=== PATIENT | male | born 1995 | race Caucasian/White ===

== ENCOUNTER 2017-02-17 08:08 | Day surgery (SDC) | payer OTHER ==
[~2017-02-17] VITALS: Ht 177.8 cm; Wt 71.7 kg
--- NOTE | ~2017-02-17 | S ---
[facility] [place] [address] SURGICAL PATH RPT PROCEDURE Name: LUZ WISE Room #: DEP [facility]..#: [id number] Admission: 02/17/17 Date of : 89 Discharge: 02/17/17 Report #: [id number] Path Case #: [id number] PATHOLOGY REPORT COLLECTION DATE: 02/17/2017 RECEIVED DATE: 02/18/2017 SUBMITTING PHYS: Dr. Roshan Chicas OTHER PHYS: SPECIMEN(S) RECEIVED: A.Pilonidal cyst * * * * * * * * * * * * FINAL DIAGNOSIS: Pilonidal cyst, excision: - Marked acute and chronic inflammation along with giant cell reaction associated with vellus hair, consistent with pilonidal cyst. (IUV:mgr; d/t: 02/19/17) PATHOLOGIST: Bridget Gutiérrez M.D. REPORT ELECTRONICALLY SIGNED BY: Bridget Gutiérrez M.D. DATE/TIME: 02/19/2017 16:28 * * * * * * * * * * * * GROSS PATHOLOGY: The specimen is received in formalin labeled "kamari Dorseydal cyst". Received is an ellipse of pale guerra skin with attached yellow-guerra fibroadipose tissue measuring 4.5 x 1.0 x 2.1 cm in greatest dimensions. The surgical margin is inked. Sectioning reveals a linear sinus tract measuring 1.1 cm in length filled with a moderate amount of hair. The specimen is submitted representatively in cassette A1. (CAA; 02/18/2017) CLINICAL HISTORY: Pilonidal cyst INITIAL CPT CODE(S): A; 20611 Professional services performed by [facility] at [facility] [address], [place] [address] Technical services performed by [facility] at [address] [place] [address]. [facility] [address] [place] [address] SURGICAL PATH RPT PROCEDURE Name: LUZ WISE Room #: DEP [facility] M.R.#: [id number] Admission: 02/17/17 Date of : [birth year] Discharge: 02/17/17 Report #: [id number] Path Case #: [id number] [place] [address] PHONE: [phone] DIRECTOR: Adan Campo M.D. * * * END OF REPORT * * *
--- NOTE | ~2017-02-17 | O ---
[facility] [place] [address] OPERATIVE REPORT Name: LUZ WISE Room #: DEP [facility]..#: [id number] Admission: 02/17/17 Attend Phys: Roshan Chicas MD, Discharge: 02/17/17 Date of : 89 Report #: [id number] THIS REPORT FOR: //name// CC: BARBIE physician/PCP Roshan Chicas DATE OF SERVICE: 02/17/2017 PREOPERATIVE DIAGNOSIS: Pilonidal cyst with multiple draining sinus tracts. POSTOPERATIVE DIAGNOSIS: Extensive pilonidal cyst with multiple draining sinus tracts. PROCEDURE PERFORMED: Extensive excision of pilonidal cyst and draining sinus tracts with complex flap closure. SURGEON: Roshan Chicas M.D. BUILDING [employer]STRU[employer] SUPERVISOR: YOLIE Hopkins ANESTHESIA: General endotracheal anesthesia. ESTIMATED BLOOD LOSS: Minimal (less than 10 mL). COMPLICATIONS: None appreciated. SPECIMENS: All excised tissue to pathology. INDICATIONS: The patient is a 21-year-old male with a history of draining sinus tracts from his superior gluteal cleft with associated pain and itching. The patient does have evidence of a few draining sinus tracts that upon probing appear to go down to the presacral tissues. As such, indication was for complete excision today for definitive management. DESCRIPTION OF PROCEDURE: After explaining the risks, benefits and alternatives of the procedure with the patient in detail in the preoperative holding area and obtaining written consent, the patient was brought to the operating room and placed supine on his hospital bed. After conducting a thorough timeout procedure verifying correct patient and procedure, the patient was given general endotracheal anesthesia. Once adequate anesthesia was obtained, his SCDs were hooked up to pneumatic compression device and he was given a preoperative dose of antibiotics in line with the SCIP protocol. The patient was then positioned on the operating room table in the prone position with all appropriate pressure points padded. The patient's perirectal tissues as well as intergluteal cleft all the way to the bilateral buttocks were prepped and draped in the standard surgical sterile fashion. A 10 mL of 0.5% [address] [address] OPERATIVE REPORT Name: LUZ WISE ELIU Room #: DEP [facility] M.R.#: [id number] Admission: 02/17/17 Attend Phys: Roshan Chicas MD, Discharge: 02/17/17 Date of : 95 Report #: [id number] Marcaine with epinephrine were used to anesthetize the skin overlying the draining sinus tracts in question. A #15 bladed scalpel was used to create a thin elliptical incision around the draining sinus tracts. Electrocautery was used to carry this down through skin and subcutaneous tissues to ensure hemostasis. This excision was carried all the way down to the presacral tissues as it did have numerous finger-like extensions into the subcutaneous tissues surrounding the sinus tracts themselves. Ultimately, I was able to fully excise the entire cyst with associated draining sinus tracts and past this off the field as specimen. Hemostasis was assured at this juncture with electrocautery. The cavity was copiously irrigated. Evaluation of the wound showed that I had excised all of the numerous finger-like extensions with no further abnormal tissue evident in the bed of the wound as I had healthy vascularized adipose tissues circumferentially. In the bed of the wound, we had healthy periosteal tissue. I now proceeded to close this wound in a complex fashion for this young active male. Electrocautery was used to create relaxing incisions and vascularized fatty pedicles, which were then rotated medially to cover the presacral tissues. Once I had assured myself of appropriate soft tissue coverage, I placed three 2-0 nylon sutures in vertical mattress fashion through the skin, deep tissues, out through the skin on the other side and then superficially back across the midline. These were not tied down, but needles were cut off and these were tagged with hemostats. Once I had placed these appropriately spaced along the length of the wound to attain inversion of the wound appropriately at the completion, I then proceeded to close the wound in the deeper layers, in numerous layers using 2-0 Vicryl and 3-0 Vicryl sutures. 2-0 Vicryl was used to rotate the vascularized fatty pedicles medially and then was placed through each of the pedicles as well as to the periosteum to hold the tissues in appropriate position overlying the sacrum. These were tied down individually sequentially as I placed them bringing all soft tissue coverage intact over the deep wound. I then proceeded to use numerous additional Vicryl sutures to close the superficial subcutaneous tissues as well as 3-0 Vicryl in standard interrupted inverted fashion to anchor the dermal tissues back to one another. I then tied down each of the nylon sutures bringing the wound together tightly down the midline in an appropriate fashion to hopefully allow for complete wound healing. Sterile dressings were then applied as well as Medipore tape. At the end of the procedure, all instruments, needle and sponge counts were correct. The patient tolerated the procedure without incident. He was awakened in the operating room and transitioned to the recovery room in stable condition with no apparent complications. <ELECTRONICALLY SIGNED> By: Roshan Chicas MD, FACS 02/19/17 [id number] [id number] Roshan Chicas MD, FACS /nt
[2017-02-17] MEDS ORDERED: CLARITIN10 MG PO (09:29)
[2017-02-17] MEDS ORDERED: MUCINEX600 MG PO (09:30)
[2017-02-17 09:47] VITALS: BP 125/58
[2017-02-17] MEDS ORDERED: HYDROCODONE-AP1 EAC6 PO (15:20)
[2017-02-17 15:38] VITALS: BP 125/58
== END 2017-02-17 16:40 | disposition home or self-care (01) ==
LOC: OR 08:08 → TBA 08:08 → OR 16:40
DX: L05.91 Pilonidal cyst without abscess (principal); Z98.890 Other specified postprocedural states
CPT/HCPCS: 50010; 50101; 50386; 50403; 54118; 56524; 56525; 56526; 62110; 62900; 70005